=== PATIENT | male | born 1935 ===

== ENCOUNTER → 2022-03-23 18:21 | Outpatient (ROUT) | payer MEDICARE, SELFPAY ==
[2022-03-23 18:32] LABS: Add Manual Diff / Slide Review NO; Basophils Absolute Auto 0 /uL (0-100); Basophils Percent Auto 0.7 % (0-2); Eosinophils Absolute Auto 0 /uL (0-450); Eosinophils Percent Auto 0.6 % (2-4); Hemoglobin 9.5 g/dL (13.5-17.5); Lymphocytes Absolute Auto 500 /uL (1100-4500); Lymphocytes Percent Auto 11.6 % (25-40); Mean Corpuscular Hemoglobin 30.4 PG (26-34); Mean Corpuscular Volume 89.6 fL (80-100); Monocytes Absolute Auto 300 /uL (0-900); Monocytes Percent Auto 8.1 % (3-14); Neutrophils Absolute Auto 3100 /uL (1500-7000); Platelet Count 141 X10^3/uL (150-400); Red Blood Cell Count 3.13 X10^6/uL (4.5-5.9); Red Cell Distribution Width 16.5 % (11.6-14.8)
[2022-03-23 19:22] LABS: Total Iron Binding Capacity 261 ug/dL (261-462)
[2022-03-23 20:19] LABS: Folate 17.8 ng/mL (2.76-20.0); Vitamin B12 521 pg/mL (239-931)
== END ==
PROVIDERS: Visit Provider Nurse Practitioner Family
DX: D64.9 Anemia, unspecified (principal)
CPT/HCPCS: 82607; 82746; 83550; 85025